=== PATIENT | female | born 1995 | race Caucasian/White ===

== ENCOUNTER 2023-01-17 13:29 | Emergency (ER) | payer OTHER, SELFPAY ==
[2023-01-17 14:06] VITALS: BP 112/51; PULSE 73; RESP 16; TEMP 36.5; O2SAT 98; BMI 17.9
== END 2023-01-17 14:45 | disposition left against medical advice (07) ==
PROVIDERS: Emergency Provider Emergency Medicine
DX: R10.32 Left lower quadrant pain (principal)
CPT/HCPCS: 99281

== ENCOUNTER → 2023-07-26 11:00 | Outpatient (BNV) | payer OTHER, SELFPAY | PROVIDERS: Visit Provider Radiology Diagnostic Radiology | DX: N63.23 Unspecified lump in the left breast, lower outer quadrant (principal) | CPT/HCPCS: 76642 ==

== ENCOUNTER 2023-07-26 11:04 | Outpatient (REF) | payer OTHER, SELFPAY ==
--- NOTE | ~2023-07-26 | US_ITS ---
EXAMINATION: US DIAGNOSTIC ULTRASOUND BREAST, LEFT CLINICAL INFORMATION: Palpable abnormality 4:00 axis, which is painful. 28-year-old female. Patient has history of prior imaging at 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 COMPARISON: Images are not directly available for comparison due to technical issue. We will continue to try to obtain images for direct comparison. Correlation with the prior report 07/17/2016 was made. TECHNIQUE: Ultrasound of the left breast is performed with real-time perdomo scale imaging and color Doppler. Attention was given to the 4:00 axis in the region of palpable abnormality and pain. FINDINGS: In the 4:00 axis of the left breast, 3 cm from the nipple, there is a hypoechoic, circumscribed avascular mass, with good through transmission, measuring 1.7 x 1.4 x 0.7 cm. This is most consistent with a benign fibroadenoma. By report this is stable, previously measuring 1.6 x 1.3 x 0.7 cm, allowing for slight differences in measurement technique. This mass correlates with the palpable and painful abnormality. There are no additional abnormal findings. Results were provided to the patient at time of visit by the technologist. 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 This correlates with the palpable and painful abnormality left breast. Clinical management recommended. ASSESSMENT: BI-RADS 2 - Benign Findings RECOMMENDATION: 1. Patient should be managed based on the clinical impression. 2. Otherwise, routine annual screening mammography beginning at age 40.
== END 2023-07-26 11:05 | disposition home or self-care (01) ==
LOC: HO.MAMMO 11:04
PROVIDERS: Visit Provider Nurse Practitioner Primary Care
DX: N63.23 Unspecified lump in the left breast, lower outer quadrant (principal)
CPT/HCPCS: 76642